=== PATIENT | female | born 1975 | race Caucasian/White ===

== ENCOUNTER 2019-04-20 01:29 | Emergency (ER) | payer OTHER ==
--- NOTE | 2019-04-20 01:50 | PDOC ---
Attending Attestation - Resident Resident Name: Nick Acosta - ED Attending Attestation I have performed the following: I have examined & evaluated the patient, The case was reviewed & discussed with the resident, I agree w/resident's findings & plan - HPI HPI: 04/20/19 02:10 Pt comes with a fall in the tub; after drinking alcohol. States that she had 3 drinks only, but that she had not eaten much and may have gotten dizzy as a result of the ETOH. SHe has headache, but no other complaints. 04/20/19 02:29 Pt has no slurring of speech and she is in NAD. - Physicial Exam PE: 04/20/19 02:30 Agree with resident exam. Pt has no neuro findings; eyes are PERRLA and she has no midline spine tenderness. - Medical Decision Making 04/20/19 02:30 CT head and C-spine; analgesia; alcohol level is 80; preg test pending. 04/20/19 04:[address] appears normal; pt will have her scalp stapled. Home with wound care. 04/20/19 04:11 Patient Name: ROBERT BLANTON THIS IS A PRELIMINARY REPORT FROM [facility] DATE OF SERVICE: 2019-04-20 03:19:31 IMAGES: [id number] EXAM: HEAD CT WITHOUT CONTRAST HISTORY: 43-Year-Old Female Fall. COMPARISON: April 20, 2019 FINDINGS: No acute intracranial hemorrhage mass effect or midline shift. Floyd-white differentiation is maintained. Ventricles sulci and basilar cisterns appear unremarkable. Calvarium is intact. The sinuses and mastoid air cells are clear. IMPRESSION No acute intracranial hemorrhage mass effect or midline shift. Patient Name: ROBERT BLANTON THIS IS A PRELIMINARY REPORT FROM [facility] DATE OF SERVICE: 2019-04-20 03:15:08 IMAGES: [id number] EXAM: CERVICAL SPINE CT W/O CONTR HISTORY: 43-Year-Old Female Fall. COMPARISON: April 20, 2019 FINDINGS: There is no prevertebral soft tissue swelling. There is no evidence of acute fracture or subluxation. There are no destructive lesions. There are no degenerative changes. IMPRESSION: No evidence of acute fracture or subluxation 04/20/19 04:12 [place] placed by resident; see resident note. She will return in 10 days for the removal of ignacio.
[2019-04-20 02:17] VITALS: BMI 25.9
[2019-04-20] MEDS ORDERED: ACETAMINOPHEN 500 MG TABLET (FP) PO ONE (02:28)
--- NOTE | 2019-04-20 02:33 | PDOC ---
History of Present Illness - General Chief Complaint: Injury Stated Complaint: FALL/HEAD INJURY Time Seen by Provider: 04/20/19 01:49 - History of Present Illness Initial Comments: 04/20/19 02:28 43F with no pmh presents with head laceration after falling in the shower, drunk. No LOC. She admits to drinking a glass of wine and 2 shots of cognac. She fell hitting the left side of her head above the ear. Complains of a headache. No neck pain. Past History - Past Medical History Allergies/Adverse Reactions: Allergies Allergy/AdvReac Type Severity Reaction Status Date / Time No Known Allergies Allergy Verified 04/20/19 02:01 COPD: No - Immunization History Immunization Up to Date: No - Suicide/Smoking/Psychosocial Hx Smoking History: Never smoked Hx Alcohol Use: Yes (SOCIALLY) Drug/Substance Use Hx: No Review of Systems - Review of Systems Able to Perform ROS?: Yes Is the patient limited [place] proficient: No Constitutional: No: Symptoms Reported HEENTM: Yes: See HPI Respiratory: No: Symptoms reported Cardiac (ROS): No: Symptoms Reported ABD/GI: No: Symptoms Reported Musculoskeletal: No: Symptoms Reported Integumentary: No: Symptoms Reported Neurological: No: Symptoms reported All Other Systems: Reviewed and Negative *Physical Exam - Vital Signs Last Vital Signs Temp Pulse Resp BP Pulse Ox 98.2 F 86 16 126/91 98 04/20/19 02:08 04/20/19 02:08 04/20/19 02:08 04/20/19 02:08 04/20/19 02:08 - Physical Exam General Appearance: Yes: Nourished, Appropriately Dressed. No: Apparent Distress HEENT: positive: EOMI, MACRINA, Other (2cm scalp laceration over the left ear.) Respiratory/Chest: positive: Lungs Clear, Normal Breath Sounds. negative: Chest Tender, Respiratory Distress Cardiovascular: positive: Regular Rhythm, Regular Rate, S1, S2 Gastrointestinal/Abdominal: positive: Normal Bowel Sounds, Flat, Soft. negative : Tender Extremity: positive: Normal Capillary Refill, Normal Inspection, Normal Range of Motion Integumentary: positive: Normal Color, Dry, Warm Neurologic: positive: quality cloth tester II-XII NML intact, Fully Oriented, Alert, Normal Mood/ Affect, Normal Response, Motor Strength 5/5 Procedures - Consent Consent obtained: Verbal, From Patient - Laceration/Wound Repair Left Upper Head Wound Length: 2.6 to 5.0 cm Wound Explored: clean Wound's Depth, Shape: linear Irrigated w/ Saline: Yes Anesthesia: 2% Lidocaine Wound Repaired With: [place] Number of Sutures: 4 ED Treatment Course - ADDITIONAL ORDERS Additional order review: Laboratory Results 04/20/19 02:00 Alcohol, Quantitative 80.9 H Medical Decision Making - Medical Decision Making 04/20/19 02:33 Will obtain , alcohol level and head ct. *DC/Admit/Observation/Transfer Diagnosis at time of Disposition: Closed head injury - Discharge Dispostion Disposition: HOME Condition at time of disposition: Improved Decision to Admit order: No - Referrals - Patient Instructions Printed Discharge Instructions: DI for Laceration Repair -- Ignacio, DI for Closed Head Injury Additional Instructions: Come back to the emergency department for any new, worsening or concerning symptoms. Follow up with your primary doctor within the next 2-3 days. Come back to the emergency department or any physician or urgent care in 7 to 10 days for ignacio removal. - Post Discharge Activity
[2019-04-20] MEDS ORDERED: ACETAMINOPHEN 325 MG TABLET (FP) ONE (03:09)
[2019-04-20] MEDS ORDERED: LIDOCAINE HCL 2% (20ML MULTI-DOSE VIAL) NR ONE (04:21)
[2019-04-20 04:54] VITALS: BP 102/67; PULSE 84; TEMP 98.5
== END 2019-04-20 05:05 | disposition home or self-care (01) ==
LOC: JER 01:29
PROC: 0HQ0XZZ Repair Scalp Skin, External Approach (ICD-10-PCS; principal; 2019-04-20)
DX: S01.01XA Laceration without foreign body of scalp, initial encounter (principal); W18.2XXA Fall in (into) shower or empty bathtub, initial encounter; Y93.E1 Activity, personal bathing and showering; Y92.031 Bathroom in apartment as the place of occurrence of the external cause; Y99.8 Other external cause status; F10.10 Alcohol abuse, uncomplicated; Y90.4 Blood alcohol level of 80-99 mg/100 ml
CPT/HCPCS: 36415; 70450-TC; 72125-TC; 80307; 84703; 99283-25